=== PATIENT | male | born 1995 | race Caucasian/White ===

== ENCOUNTER → 2021-09-13 | Outpatient (CLI) | payer BC | END | disposition home or self-care (01) | LOC: CT 09:07 | PROVIDERS: ATTEND Nurse Practitioner Family | DX: N40.0 Benign prostatic hyperplasia without lower urinary tract symptoms (principal); R10.84 Generalized abdominal pain; K62.5 Hemorrhage of anus and rectum ==

== ENCOUNTER → 2021-10-07 | Day surgery (SDC) | payer BC ==
[~2021-10-07] VITALS: Ht 172.7 cm; Wt 75.7 kg
[2021-10-07 06:51] VITALS: BP 119/65
[2021-10-07 07:49] VITALS: BP 98/59
[2021-10-07 08:04] VITALS: BP 96/61
[2021-10-07 08:19] VITALS: BP 100/59
== END | disposition home or self-care (01) ==
LOC: SDC 10-04 12:30
PROVIDERS: ATTEND Surgery
DX: K62.5 Hemorrhage of anus and rectum (principal); K29.50 Unspecified chronic gastritis without bleeding; K52.9 Noninfective gastroenteritis and colitis, unspecified; F41.9 Anxiety disorder, unspecified; Z20.822 Contact with and (suspected) exposure to COVID-19; Z79.899 Other long term (current) drug therapy